=== PATIENT | male | born 1980 ===

== ENCOUNTER 2018-10-27 15:23 | Inpatient (IN) | payer OTHER ==
[2018-10-27 15:43] VITALS: BMI 26.3
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
[2018-10-27] MEDS ORDERED: chlordiazePOXIDE HCL 25 MG CAPSULE PO PRN (18:03)
[2018-10-27] MEDS ORDERED: LOPERAMIDE HCL 2 MG CAPSULE PO PRN (18:03)
[2018-10-27] MEDS ORDERED: MAG HYDROX/AL HYDROX/SIMETH 30 ML UNIT-DOSE CUP PO PRN (18:03)
[2018-10-27] MEDS ORDERED: MENTHOL/PHENOL 1 EACH UD MM PRN (18:03)
[2018-10-27] MEDS ORDERED: chlordiazePOXIDE HCL 25 MG CAPSULE PO ONE (18:03)
[2018-10-27] MEDS ORDERED: MAGNESIUM CITRATE 300 ML BOTTLE PO PRN (18:03)
[2018-10-27] MEDS ORDERED: MAGNESIUM HYDROX 2400MG/30ML ORAL SUSPENSION 30 ML CUP PO PRN (18:03)
[2018-10-27] MEDS ORDERED: P-EPHED 60MG/TRIPROLIDI 2.5MG TABLET PO PRN (18:03)
[2018-10-27] MEDS ORDERED: hydrOXYzine PAMOATE 50 MG CAPSULE (FP) PO PRN (18:03)
[2018-10-27] MEDS ORDERED: NICOTINE POLACRILEX 4 MG GUM BC PRN (18:03)
[2018-10-27] MEDS ORDERED: guaiFENesin/D-METHORPHAN HB 10 ML UNIT-DOSE CUPS PO PRN (18:03)
[2018-10-27] MEDS ORDERED: ACETAMINOPHEN 325 MG TABLET (FP) PO PRN (18:03)
[2018-10-27] MEDS ORDERED: MELATONIN 5 MG TABLETS PO PRN (22:00)
[2018-10-27] MEDS: THIAMINE HCL 100 MG TABLET (FP) PO SCH (22:49)
[2018-10-27] MEDS: chlordiazePOXIDE HCL 25 MG CAPSULE PO SCH (22:50)
[2018-10-28 01:50] LABS: URINE APPEARANCE TURBID; URINE BILIRUBIN NEGATIVE (<2.0 mg/dL); URINE COLOR AMBER; URINE GLUCOSE (UA) NEGATIVE (NEGATIVE); URINE KETONE NEGATIVE (NEGATIVE); URINE LEUK ESTERASE NEGATIVE (NEGATIVE); URINE NITRITE NEGATIVE (NEGATIVE); URINE PROTEIN NEGATIVE (NEGATIVE); URINE UROBILINOGEN 4.0 E.U/dl mg/dL (0.2-1.0)
[2018-10-28] MEDS: chlordiazePOXIDE HCL 25 MG CAPSULE PO SCH ×4 (05:47→22:18)
--- NOTE | 2018-10-28 09:21 | PN ---
S CIWA - CIWA Score Nausea/Vomitin-Mild Nausea/No Vomiting Muscle Tremors: 3 Anxiety: 1-Mildly Anxious Agitation: 3 Paroxysmal Sweats: 1-Minimal Palms Moist Orientation: 1-Uncertain about Date Tacttile Disturbances: 0-None Auditory Disturbances: 0-None Visual Disturbances: 0-None Headache: 2-Mild CIWA-Ar Total Score: 12 BHS Progress Note (SOAP) Subjective: tremor sweat restlessness anxiety disoriented to date of the week Objective: 10/28/18 09:19 Vital Signs Temperature 97.0 F L 10/28/18 06:16 Pulse Rate 82 10/28/18 06:16 Respiratory Rate 18 10/28/18 06:16 Blood Pressure 117/77 10/28/18 06:16 O2 Sat by Pulse Oximetry (%) Laboratory Last Values Urine Color Cassie 10/27/18 22:25 Urine Appearance Turbid 10/27/18 22:25 Urine pH 5.0 (5.0-8.0) D 10/27/18 22:25 Ur Specific [place] 1.030 (1.010-1.035) 10/27/18 22:25 Urine Protein Negative (NEGATIVE) 10/27/18 22:25 Urine Glucose (UA) Negative (NEGATIVE) 10/27/18 22:25 Urine Ketones Negative (NEGATIVE) 10/27/18 22:25 Urine Blood Negative (NEGATIVE) 10/27/18 22:25 Urine Nitrite Negative (NEGATIVE) 10/27/18 22:25 Urine Bilirubin Negative (<2.0 mg/dL) 10/27/18 22:25 Urine Urobilinogen 4.0 e.u/dl mg/dL (0.2-1.0) 10/27/18 22:25 Ur Leukocyte Esterase Negative (NEGATIVE) 10/27/18 22:25 lab noted Assessment: 10/28/18 09:20 withdrawal ax Plan: continue detox
[2018-10-28] MEDS: PRENATAL VITAMINS W/ FOLIC ACID TABLET (FP) PO SCH (10:19)
[2018-10-28] MEDS: NICOTINE 21 MG/24 HOURS TOPICAL PATCH TD SCH (10:19)
[2018-10-28 11:04] LABS: HEMATOCRIT 40.9 % (35.4-49); HEMOGLOBIN 14.3 GM/dL (11.7-16.9); MCH 29.8 pg (25.7-33.7); MEAN CELL VOLUME 85.3 fl (80-96); MEAN PLT VOLUME 7.9 fl (7.5-11.1); PLATELET COUNT 248 K/MM3 (134-434); RBC 4.79 M/mm3 (4.00-5.60); RDW 14.3 % (11.9-15.9); WHITE BLOOD COUNT 6.4 K/mm3 (4.0-10.0)
[2018-10-28 11:42] LABS: ALBUMIN 3.4 g/dl (3.4-5.0); ALK PHOS 53 U/L (45-117); ANION GAP 6 MMOL/L (8-16); BILIRUBIN,TOTAL 0.9 mg/dL (0.2-1); BLOOD UREA NITROGEN 11 mg/dL (7-18); CALCIUM 8.5 mg/dL (8.5-10.1); CHLORIDE 106 mmol/L (98-107); CO2 30 mmol/L (21-32); CREATININE 0.9 mg/dL (0.55-1.3); GLUCOSE,RANDOM 102 mg/dL (74-106); SGOT/AST 17 U/L (15-37); SGPT/ALT 15 U/L (13-61); SODIUM 141 mmol/L (136-145); TOT PROT 6.2 g/dl (6.4-8.2)
--- NOTE | 2018-10-28 12:17 | EKG ---
Test Reason : Blood Pressure : / mmHG Vent. Rate : 084 BPM Atrial Rate : 084 BPM P-R Int : 130 ms QRS Dur : 090 ms QT Int : 352 ms P-R-T Axes : 072 039 050 degrees QTc Int : 415 ms NORMAL SINUS RHYTHM NORMAL ECG NO PREVIOUS ECGS AVAILABLE Confirmed by MIROSLAVA DICKEY MD ([id number]) on 10/28/2018 12:17:27 PM Referred By: Confirmed By:MIROSLAVA DICKEY MD
[2018-10-28] MEDS: THIAMINE HCL 100 MG TABLET (FP) PO SCH (22:18)
[2018-10-29] MEDS: chlordiazePOXIDE HCL 25 MG CAPSULE PO SCH ×3 (05:56→17:39)
[2018-10-29] MEDS: PRENATAL VITAMINS W/ FOLIC ACID TABLET (FP) PO SCH (10:57)
[2018-10-29] MEDS: NICOTINE 21 MG/24 HOURS TOPICAL PATCH TD SCH (10:59)
--- NOTE | 2018-10-29 14:42 | PN ---
S CIWA - CIWA Score Nausea/Vomitin-No Nausea/No Vomiting Muscle Tremors: None Anxiety: 3 Agitation: 3 Paroxysmal Sweats: No Perspiration Orientation: 0-Oriented Tacttile Disturbances: 0-None Auditory Disturbances: 0-None Visual Disturbances: 0-None Headache: 2-Mild CIWA-Ar Total Score: 8 BHS Progress Note (SOAP) Subjective: PATIENT C/O FEELING ANXIOUS AND RESTLESS AT TIMES. ALSO C/O OCCASIONAL HEADACHE. Objective: 10/29/18 14:41 Laboratory Tests 10/27/18 10/28/18 10/28/18 22:25 07:00 07:00 WBC 6.4 RBC 4.79 Hgb 14.3 Hct 40.9 D MCV 85.3 MCH 29.8 MCHC 35.0 RDW 14.3 Plt Count 248 MPV 7.9 Sodium 141 Potassium 4.0 Chloride 106 Carbon Dioxide 30 Anion Gap 6 L BUN 11 Creatinine 0.9 Creat Clearance w eGFR > 60 Random Glucose 102 Calcium 8.5 Total Bilirubin 0.9 AST 17 ALT 15 Alkaline Phosphatase 53 Total Protein 6.2 L Albumin 3.4 Urine Color Cassie Urine Appearance Turbid Urine pH 5.0 D Ur Specific [place] 1.030 Urine Protein Negative Urine Glucose (UA) Negative Urine Ketones Negative Urine Blood Negative Urine Nitrite Negative Urine Bilirubin Negative Urine Urobilinogen 4.0 e.u/dl Ur Leukocyte Esterase Negative RPR Titer 10/28/18 07:00 WBC RBC Hgb Hct MCV MCH MCHC RDW Plt Count MPV Sodium Potassium Chloride Carbon Dioxide Anion Gap BUN Creatinine Creat Clearance w eGFR Random Glucose Calcium Total Bilirubin AST ALT Alkaline Phosphatase Total Protein Albumin Urine Color Urine Appearance Urine pH Ur Specific [place] Urine Protein Urine Glucose (UA) Urine Ketones Urine Blood Urine Nitrite Urine Bilirubin Urine Urobilinogen Ur Leukocyte Esterase RPR Titer Nonreactive PE: ALERT AND ORIENTED X 3 SKIN WARM AND DRY EXT FULL ROM, NO VISIBLE TREMORS AMB AD MOUSTAPHA Assessment: 10/29/18 14:42 WITHDRAWAL SX Plan: CONTINUE DETOX ENCOURAGE ORAL FLUIDS CONTINUE TO MONITOR
[2018-10-29] MEDS: IBUPROFEN 400 MG TABLET (FP) PO PRN (17:05)
[2018-10-29] MEDS: THIAMINE HCL 100 MG TABLET (FP) PO SCH (22:38)
[2018-10-29] MEDS: chlordiazePOXIDE 5 MG CAPSULE PO SCH (22:38)
[2018-10-30] MEDS: chlordiazePOXIDE 5 MG CAPSULE PO SCH ×3 (05:29→17:47)
[2018-10-30] MEDS: IBUPROFEN 400 MG TABLET (FP) PO PRN ×2 (05:30→17:49)
[2018-10-30] MEDS: PRENATAL VITAMINS W/ FOLIC ACID TABLET (FP) PO SCH (10:42)
[2018-10-30] MEDS: NICOTINE 21 MG/24 HOURS TOPICAL PATCH TD SCH (10:43)
--- NOTE | 2018-10-30 17:50 | PN ---
BHS Progress Note (SOAP) Subjective: Patient Denies Any Current Withdrawal Symptoms. Objective: PATIENT A & O X 3, OBSERVED AMBULATING ON UNIT. IN NO ACUTE DISTRESS. 10/30/18 17:47 Vital Signs Temperature 98.0 F 10/30/18 15:12 Pulse Rate 96 H 10/30/18 15:12 Respiratory Rate 18 10/30/18 15:12 Blood Pressure 139/83 10/30/18 15:12 O2 Sat by Pulse Oximetry (%) Laboratory Tests 10/27/18 10/28/18 10/28/18 22:25 07:00 07:00 WBC 6.4 RBC 4.79 Hgb 14.3 Hct 40.9 D MCV 85.3 MCH 29.8 MCHC 35.0 RDW 14.3 Plt Count 248 MPV 7.9 Sodium 141 Potassium 4.0 Chloride 106 Carbon Dioxide 30 Anion Gap 6 L BUN 11 Creatinine 0.9 Creat Clearance w eGFR > 60 Random Glucose 102 Calcium 8.5 Total Bilirubin 0.9 AST 17 ALT 15 Alkaline Phosphatase 53 Total Protein 6.2 L Albumin 3.4 Urine Color Cassie Urine Appearance Turbid Urine pH 5.0 D Ur Specific [place] 1.030 Urine Protein Negative Urine Glucose (UA) Negative Urine Ketones Negative Urine Blood Negative Urine Nitrite Negative Urine Bilirubin Negative Urine Urobilinogen 4.0 e.u/dl Ur Leukocyte Esterase Negative RPR Titer 10/28/18 07:00 WBC RBC Hgb Hct MCV MCH MCHC RDW Plt Count MPV Sodium Potassium Chloride Carbon Dioxide Anion Gap BUN Creatinine Creat Clearance w eGFR Random Glucose Calcium Total Bilirubin AST ALT Alkaline Phosphatase Total Protein Albumin Urine Color Urine Appearance Urine pH Ur Specific [place] Urine Protein Urine Glucose (UA) Urine Ketones Urine Blood Urine Nitrite Urine Bilirubin Urine Urobilinogen Ur Leukocyte Esterase RPR Titer Nonreactive LABS NOTED. Assessment: 10/30/18 17:47 WITHDRAWAL SYMPTOMS. Plan: CONTINUE DETOX.
[2018-10-30] MEDS: chlordiazePOXIDE HCL 10 MG CAPSULE PO SCH (22:42)
[2018-10-30] MEDS: THIAMINE HCL 100 MG TABLET (FP) PO SCH (22:42)
[2018-10-31] MEDS: chlordiazePOXIDE HCL 10 MG CAPSULE PO SCH (05:59)
[2018-10-31] MEDS: IBUPROFEN 400 MG TABLET (FP) PO PRN (06:00)
[2018-10-31 10:11] VITALS: BP 139/97; PULSE 97; TEMP 96.4
--- NOTE | 2018-10-31 17:44 | DS ---
[facility] Detox Discharge Summary Admission Date: 10/27/18 Discharge Date: 10/31/18 - History Present History: Alcohol Dependence, Pcp Dependence Additional Comments: Patient completed detox successfully. Patient is A, A, Ox3, in nad. Instructed to follow up with PCP within 1-2 weeks Pertinent Past History: PCP dependence Alcohol dependence Nicotine dependence - Physical Exam Results Vital Signs: Vital Signs Temperature 96.4 F L 10/31/18 10:11 Pulse Rate 97 H 10/31/18 10:11 Respiratory Rate 18 10/31/18 10:11 Blood Pressure 139/97 10/31/18 10:11 O2 Sat by Pulse Oximetry (%) Pertinent Admission Physical Exam Findings: Withdrawal symptoms Laboratory Tests 10/27/18 10/28/18 10/28/18 22:25 07:00 07:00 WBC 6.4 RBC 4.79 Hgb 14.3 Hct 40.9 D MCV 85.3 MCH 29.8 MCHC 35.0 RDW 14.3 Plt Count 248 MPV 7.9 Sodium 141 Potassium 4.0 Chloride 106 Carbon Dioxide 30 Anion Gap 6 L BUN 11 Creatinine 0.9 Creat Clearance w eGFR > 60 Random Glucose 102 Calcium 8.5 Total Bilirubin 0.9 AST 17 ALT 15 Alkaline Phosphatase 53 Total Protein 6.2 L Albumin 3.4 Urine Color Cassie Urine Appearance Turbid Urine pH 5.0 D Ur Specific [place] 1.030 Urine Protein Negative Urine Glucose (UA) Negative Urine Ketones Negative Urine Blood Negative Urine Nitrite Negative Urine Bilirubin Negative Urine Urobilinogen 4.0 e.u/dl Ur Leukocyte Esterase Negative RPR Titer 10/28/18 07:00 WBC RBC Hgb Hct MCV MCH MCHC RDW Plt Count MPV Sodium Potassium Chloride Carbon Dioxide Anion Gap BUN Creatinine Creat Clearance w eGFR Random Glucose Calcium Total Bilirubin AST ALT Alkaline Phosphatase Total Protein Albumin Urine Color Urine Appearance Urine pH Ur Specific [place] Urine Protein Urine Glucose (UA) Urine Ketones Urine Blood Urine Nitrite Urine Bilirubin Urine Urobilinogen Ur Leukocyte Esterase RPR Titer Nonreactive Labs reviewed - Treatment Hospital Course: Detox Protocol Followed, Detoxed Safely, Responded well, Discharged Condition Good - Medication Discharge Medications: Ambulatory Orders NK [No Known Home Medication] 10/27/18 - Diagnosis (1) Alcohol dependence with uncomplicated withdrawal Status: Acute (2) Nicotine dependence Status: Chronic Qualifiers: Nicotine product type: cigarettes Substance use status: uncomplicated Qualified Code(s): F17.210 - Nicotine dependence, cigarettes, uncomplicated (3) PCP dependence Status: Chronic - AMA Did Patient Leave Against Medical Advice: No (F/U with PCP within 1-2 weeks)
== END 2018-10-31 09:33 | disposition home or self-care (01) | DRG 775 ==
LOC: YASAS 15:23 → Y3N 18:38
PROC: HZ2ZZZZ Detoxification Services for Substance Abuse Treatment (ICD-10-PCS; principal; 2018-10-27)
DX: F10.230 Alcohol dependence with withdrawal, uncomplicated (principal); F16.20 Hallucinogen dependence, uncomplicated; F17.210 Nicotine dependence, cigarettes, uncomplicated
CPT/HCPCS: 36415; 80053; 81003; 85027; 86593; 93005; 93010